=== PATIENT | male | born 1990 | race African-American/Black ===

== ENCOUNTER 2017-10-20 20:38 | Emergency (ER) | payer OTHER ==
[~2017-10-20] VITALS: Ht 180.3 cm; Wt 81.7 kg
[~2017-10-20 20:38] MED LIST: MOBIC15 MG PO
[2017-10-20] MEDS ORDERED: ZOCOR20 MG PO (21:12)
[2017-10-20] MEDS ORDERED: MINOCIN100 MG PO (21:13)
[2017-10-20] MEDS ORDERED: SYNTHROID50 MCG PO (21:13)
[2017-10-20] MEDS ORDERED: QUETIAPINE FUM100 MG PO (21:13)
[2017-10-20] MEDS ORDERED: BENZTROPINE MES1 MG PO (21:14)
[2017-10-20] MEDS ORDERED: HALDOL 0.5 MG0.5 M1 PO (21:15)
[2017-10-20] MEDS ORDERED: ATIVAN0.5 MG PO (21:15)
[2017-10-20] MEDS ORDERED: WHEELCHAIR1 EACH MC (22:28)
[2017-10-20] MEDS ORDERED: IBUPROFEN 600600 M1 PO (22:45)
== END 2017-10-21 04:53 | disposition home or self-care (01) ==
LOC: ER 20:38
DX: S82.001A Unspecified fracture of right patella, initial encounter for closed fracture (principal); E78.5 Hyperlipidemia, unspecified; E03.9 Hypothyroidism, unspecified; F20.9 Schizophrenia, unspecified; W01.0XXA Fall on same level from slipping, tripping and stumbling without subsequent striking against object, initial encounter; Y93.89 Activity, other specified; Y92.89 Other specified places as the place of occurrence of the external cause; Y99.8 Other external cause status

== ENCOUNTER 2021-04-16 11:08 | Emergency (ER) | payer OTHER ==
[~2021-04-16] VITALS: Ht 182.9 cm; Wt 81.7 kg
[~2021-04-16 11:08] MED LIST changes: +ATIVAN0.5 MG PO; +BENZTROPINE MES1 MG PO; +HALDOL 0.5 MG0.5 M1 PO; +IBUPROFEN 600600 M1 PO; +MINOCIN100 MG PO; +QUETIAPINE FUM100 MG PO; +SYNTHROID50 MCG PO; +WHEELCHAIR1 EACH MC; +ZOCOR20 MG PO
[2021-04-16 12:22] LABS: HEMATOCRIT 38.8 % (42.0-52.0); HEMOGLOBIN 12.8 gm/dL (14.0-18.0); MCH 29.8 pg (26.0-34.0); MCHC 33.2 g/dL (28.0-37.0); MCV 89.8 fL (80.0-100.0); PLATELET COUNT 195 thou/uL (150-400); RBC 4.32 mil/uL (4.50-6.00); RDW 15.9 % (10.5-14.5)
--- NOTE | 2021-04-16 12:25 | EKG ---
[address] [address] ELECTROCARDIOGRAM REPORT Name: SUSANA ROMO Room #: [facility].Alexa#: [id number] Admission: Attend Phys: Discharge: Date of : 88 Report #: [id number] [facility] ED Test Date: 2021-04-16 Test Time: 11:12:52 Pat Name: SUSANA ROMO Department: Room: Gender: Joy Operator Helper: CHARLEE : 1990 Requested By: Sangeeta Romero Order Number: [id number] MD: Lane Ray Measurements Intervals [place] Rate: 99 P: 64 [place]: 131 QRS: 24 QRSD: 67 T: 28 QT: 323 QTc: 415 Interpretive Statements Sinus tachycardia Ventricular premature complex No previous ECG available for comparison Electronically Signed On 04-16-2021 12:25:[address] Ray [email or web address] <ELECTRONICALLY SIGNED> By: Lane Ray MD 04/16/[address] Ray MD /EPI
[2021-04-16 12:30] LABS: ANION GAP 5 mmol/L (7-16); BUN 14 mg/dL (7-18); CALCIUM 9.1 mg/dL (8.5-10.1); CHLORIDE 105 mmol/L (98-107); CO2 31 mmol/L (21-32); CREATININE 1.1 mg/dL (0.7-1.3); GLUCOSE 87 mg/dL (74-106); POTASSIUM 4.2 mmol/L (3.5-5.1); SODIUM 141 mmol/L (136-145)
[2021-04-16 12:40] LABS: ALBUMIN 3.5 g/dL (3.4-5.0); SGOT 18 U/L (15-37); SGPT 23 U/L (16-63); TOTAL BILIRUBIN 0.2 mg/dL (0.2-1.0); TROPONIN-I <0.06 ng/mL (<0.06)
[2021-04-16 13:10] LABS: ABSOLUTE NEUTROPHILS 2.3 thou/uL (1.4-8.2); PLATELET ESTIMATE NORMAL
[2021-04-16 14:16] VITALS: BP 118/82
== END 2021-04-16 14:16 | disposition home or self-care (01) ==
LOC: ER 11:08
PROVIDERS: Emergency Medicine
DX: U07.1 COVID-19 (principal); R07.89 Other chest pain; F20.9 Schizophrenia, unspecified; E78.5 Hyperlipidemia, unspecified; E03.9 Hypothyroidism, unspecified; Z79.1 Long term (current) use of non-steroidal anti-inflammatories (NSAID); Z79.899 Other long term (current) drug therapy